=== PATIENT | female | born 1990 | race African-American/Black ===

== ENCOUNTER 2016-11-04 10:13 | Emergency (ER) | payer OTHER ==
[~2016-11-04] VITALS: Ht 162.6 cm; Wt 83.0 kg
[~2016-11-04 10:13] MED LIST: AMOXICILLIN500 MG ORAL; AUGMENTIN 875-1 EAC1 ORAL; AZITHROMYCIN250 MG ORAL; CEPHALEXIN500 MG ORAL; CIPROFLOXACIN500 M2 ORAL; CLINDAMYCIN HC300 MG ORAL; DIFLUCAN200 MG ORAL; FLUCONAZOLE100 MG ORAL; IBUPROFEN600 MG ORAL; METRONIDAZOLE500 MG ORAL; NITROFURANTOIN100 M2 ORAL; NKM; PENICILLIN V P500 MG PO; PHENAZOPYRIDIN200 MG ORAL
[2016-11-04 11:10] VITALS: BP 103/71
[2016-11-04] MEDS ORDERED: CLOTRIMAZOLE15 GM TOPIC (11:11)
[2016-11-04 11:28] VITALS: BP 103/71
--- NOTE | 2016-11-04 15:11 | Emergency Room Report ---
History of Present Illness General Chief Complaint: Skin Rash/Abscess Source: Patient Present Illness HPI 26-year-old female presents to ED for evaluation of rash. States she noticed a spot on her left hip today. itchy in nature. Denies any pain. Denies any fevers or chills. Denies any sick contacts or recent travel. No other aggravating or relieving factors. Denies any other associated symptoms Allergies: Coded Allergies: No Known Allergies (Unverified , 01/27/13) Patient History Past Medical History: none Past Surgical History: none Pertinent Family History: none Social History: Denies: alcohol use, drug use, smoking Last Menstrual Period: 10/21/16 Now: No Immunizations: UTD Reviewed Nursing Documentation: PMH: Agreed, PSxH: Agreed Nursing Documentation-PMH Past Medical History: No Stated History Review of Systems All Other Systems: negative except mentioned in HPI Physical Exam Vital Signs Date Time Temp Pulse Resp B/P Pulse Ox O2 Delivery O2 Flow Rate FiO2 11/04/16 10:55 98.2 72 16 103/71 100 Room Air Sp02 EP Interpretation: reviewed, normal General Appearance: no apparent distress, alert, GCS 15, non-toxic Head: normocephalic Eyes: bilateral eye PERRL, bilateral eye normal inspection ENT: normal ENT inspection Neck: normal inspection Respiratory: normal inspection Cardiovascular #1: normal inspection Gastrointestinal: normal inspection Rectal: deferred Genitourinary: no CVA tenderness Musculoskeletal: normal inspection Neurologic: alert, oriented x3, responsive, motor strength/tone normal, sensory intact, speech normal Psychiatric: normal inspection Skin: rash - one circular lesion on L hip. raised edges Lymphatic: normal inspection Medical Decision Making Diagnostic Impression: Primary Impression: Ringworm of body ER Course Hospital Course 26-year-old female presents to ED with rash to hip Differential diagnoses include: Cellulitis, dermatitis, insect bite, abscess Clinical course Patient placed on stretcher. After initial history, physical exam reveals a female in no acute distress. On exam there is a singular circular lesion noted to the L hip. Smooth in nature with raised edges. These appear consistent with ringworm. Reassurance given Diagnosis - ringworm of body stable and discharged to home with prescription for Lotrimin. Instructed to followup with PMD. Instructed return to ED if symptoms recur or worsen Last Vital Signs Date Time Temp Pulse Resp B/P Pulse Ox O2 Delivery O2 Flow Rate FiO2 11/04/16 11:28 98.2 76 16 103/71 100 Room Air Status: improved Disposition: HOME, SELF-CARE Condition: Stable Scripts Clotrimazole* (LOTRIMIN*) 15 Gm Cream..g. 1 APPLIC TOPIC TWICE A DAY, #15 GM Prov: DONNA CROCKETT M.D. 11/04/16 Referrals: [facility],REFERRING (PCP) Patient Instructions: Body Ringworm DONNA CROCKETT M.D. Nov 04, 2016 15:11
== END 2016-11-04 11:29 | disposition home or self-care (01) ==
LOC: EMR 11:16
DX: B35.4 Tinea corporis (principal)
CPT/HCPCS: 99283

== ENCOUNTER 2016-11-13 08:01 | Emergency (ER) | payer OTHER ==
[~2016-11-13] VITALS: Ht 162.6 cm; Wt 83.0 kg
[~2016-11-13 08:01] MED LIST changes: +CLOTRIMAZOLE15 GM TOPIC
[2016-11-13 08:35] LABS: APPEARANCE,URINE CLEAR; KETONES,URINE NEGATIVE (NEGATIVE); LEUKOCYTE ESTERASE ,URINE NEGATIVE (NEGATIVE); NITRITE,URINE NEGATIVE (NEGATIVE); PH,URINE 8 (4.5-8.0); PROTEIN,URINE NEGATIVE (NEGATIVE); UROBILINOGEN,URINE NORMAL MG/DL (0.0-1.0)
[2016-11-13 08:39] VITALS: BP 105/74
[2016-11-13 09:38] VITALS: BP 100/65
--- NOTE | 2016-11-13 10:04 | Emergency Room Report ---
History of Present Illness General Chief Complaint: Female Urogenital Problems Source: Patient Present Illness HPI 26YOF with c/o of "mass" under C/section scar and "uncomfortable" feeling when urinating for 2 days. States always feels like has to urinate, but no urine produced. C/o mass, unchanged in size since June. Per EMR, was seen here Jun 2016, thought possible cellulitis/asbcess. Given Rx Keflex, which she completed but states no improvement in size, pain. Denies dysuria, polyuria, discharge, flank pain, nausea/vomiting. Allergies: Coded Allergies: No Known Allergies (Unverified , 01/27/13) Patient History Past Medical History: none Past Surgical History: Pertinent Family History: none Social History: Denies: alcohol use, drug use, smoking Last Menstrual Period: 3-26 Now: No Immunizations: UTD Reviewed Nursing Documentation: PMH: Agreed, PSxH: Agreed Nursing Documentation-PMH Past Medical History: No Stated History Review of Systems All Other Systems: negative except mentioned in HPI Physical Exam Vital Signs Date Time Temp Pulse Resp B/P Pulse Ox O2 Delivery O2 Flow Rate FiO2 11/13/16 08:04 98.4 78 18 105/74 99 Room Air Sp02 EP Interpretation: reviewed, normal General Appearance: normal inspection, well appearing, no apparent distress, alert Head: atraumatic ENT: normal ENT inspection, hearing grossly normal, normal voice Neck: normal inspection, full range of motion, supple, no bony tend Respiratory: normal inspection, lungs clear, normal breath sounds, no respiratory distress, no retraction, no wheezing Cardiovascular #1: regular rate, rhythm, no edema Gastrointestinal: normal inspection, normal bowel sounds, non tender, soft, no guarding, no hernia Genitourinary: no CVA tenderness, other - Pelvic done with MARIN Ivan: there is 2cm area of induration under the C/section scar in midline. No overlying erythema or cellulitis. Area is hard, ttp. On pelvic exam there is no obvious weaknening of vaginal wall or bladder floor Musculoskeletal: normal inspection, back normal, normal range of motion, Chau' s Sign negative Neurologic: normal inspection, alert, oriented x3, responsive, insights manager III-XII nml as tested, speech normal Psychiatric: normal inspection, judgement/insight normal, mood/affect normal Skin: normal inspection, normal color, no rash Lymphatic: normal inspection Medical Decision Making Diagnostic Impression: Primary Impression: Pelvic pain Additional Impression: Urge and stress incontinence ER Course Not UA: No infection. Unlikely abscess under skin given 4 months unchanged in size, no improvement with Keflex Abx previously Advised [employer] followup to evaluate, possible post-surgical scar, seroma Also advised Kegel exercises, followup [employer] to eval for urge incontinence DC home Last Vital Signs Date Time Temp Pulse Resp B/P Pulse Ox O2 Delivery O2 Flow Rate FiO2 11/13/16 09:38 98.4 75 18 100/65 99 Room Air Status: improved Disposition: HOME, SELF-CARE Condition: Improved Patient Instructions: Adhesions, [id number], Kegel Exercises Additional Instructions: - Please follow up with your primary doctor/[employer] to evaluate the scar tissue under the scar and also for weakness in your bladder floor - Try the kegel exercises in attached information to strengthen your bladder floor muscles TERENCE LEROY M.D. Nov 13, 2016 10:04
== END 2016-11-13 09:39 | disposition home or self-care (01) ==
LOC: EMR 08:17
DX: R10.2 Pelvic and perineal pain (principal); N39.46 Mixed incontinence; L90.5 Scar conditions and fibrosis of skin
CPT/HCPCS: 81003; 81025; 99282

== ENCOUNTER 2016-11-27 10:05 | Emergency (ER) | payer OTHER ==
[~2016-11-27] VITALS: Ht 162.6 cm; Wt 83.0 kg
[2016-11-27 10:18] VITALS: BP 104/70
--- NOTE | 2016-11-27 10:35 | Emergency Room Report ---
History of Present Illness General Chief Complaint: Sore Throat Source: Patient Present Illness HPI The patient presents with a sore throat that began yesterday. She states the pain is 9/10. She denies any cough. She does not sure she's had a fever. She' s having difficulty swallowing. No NVD, dysuria, chest pain. No rashes. She doesn't think she's . Allergies: Coded Allergies: No Known Allergies (Unverified , 01/27/13) Patient History Past Medical History: see triage record Social History: Denies: smoking Social History Narrative with sig other Now: No Nursing Documentation-PMH Past Medical History: No Stated History Review of Systems All Other Systems: negative except mentioned in HPI Physical Exam Vital Signs Date Time Temp Pulse Resp B/P Pulse Ox O2 Delivery O2 Flow Rate FiO2 11/27/16 10:09 98.2 81 20 104/70 96 Room Air Sp02 EP Interpretation: reviewed, normal General Appearance: well appearing, no apparent distress Head: normocephalic, atraumatic Eyes: bilateral eye normal inspection ENT: normal voice, moist mucus membranes, pharyngeal erythema, tonsillar exudate Neck: full range of motion, supple Respiratory: no respiratory distress, speaking full sentences Cardiovascular #2: 2+ radial (L) Gastrointestinal: normal inspection Musculoskeletal: gait/station normal, normal range of motion Neurologic: alert, normal gait, grossly normal Psychiatric: mood/affect normal Skin: no rash Medical Decision Making Diagnostic Impression: Primary Impression: Pharyngitis Qualified Codes: J02.9 - Acute pharyngitis, unspecified ER Course Patient with throat pain. Ddx: strep, viral, [place] amongst others. Exam c/w strep. Will treat with decadron, lido, augmentin. Patient stable for outpatient observation and treatment. Last Vital Signs Date Time Temp Pulse Resp B/P Pulse Ox O2 Delivery O2 Flow Rate FiO2 11/27/16 11:03 98.2 20 104/70 96 Room Air 11/27/16 10:09 81 Status: improved Disposition: HOME, SELF-CARE Condition: Improved Scripts Amoxicillin/Potassium Clav 500-125 Tablet* (AUGMENTIN 500-125 TABLET*) 1 Each Tablet 1 TAB ORAL THREE TIMES A DAY, #21 TAB Prov: Sai Rojo M.D. 11/27/16 Tramadol Hcl* (ULTRAM*) 50 Mg Tablet 50 MG ORAL Q6H Y for For Pain, #10 TAB 0 Refills Prov: Sai Rojo M.D. 11/27/16 Ibuprofen* (MOTRIN*) 600 Mg Tablet 600 MG ORAL Q6H Y for For Pain, #16 TAB Prov: Sai Rojo M.D. 11/27/16 Referrals: [facility],REFERRING (PCP) Sai Rojo M.D. November 27, 2016 10:35
[2016-11-27] MEDS ORDERED: IBUPROFEN600 MG ORAL (10:43)
[2016-11-27] MEDS ORDERED: TRAMADOL HCL50 MG ORAL (10:43)
[2016-11-27] MEDS ORDERED: AUGMENTIN 500-1 EACH ORAL (10:43)
[2016-11-27] MEDS ORDERED: Lidocaine 2% Visc 15ml soln ORAL ONE (10:45)
[2016-11-27 11:03] VITALS: BP 104/70
== END 2016-11-27 11:05 | disposition home or self-care (01) ==
LOC: EMR 10:24
DX: J02.9 Acute pharyngitis, unspecified (principal)
CPT/HCPCS: 99284; J8540

== ENCOUNTER 2017-01-14 19:49 | Emergency (ER) | payer OTHER ==
[~2017-01-14] VITALS: Ht 175.3 cm; Wt 85.7 kg
[~2017-01-14 19:49] MED LIST changes: +AUGMENTIN 500-1 EACH ORAL; +TRAMADOL HCL50 MG ORAL
[2017-01-14 20:08] VITALS: BP 108/74
[2017-01-14] MEDS ORDERED: IBUPROFEN600 MG ORAL (20:50)
[2017-01-14] MEDS ORDERED: BENADRYL25 MG ORAL (20:50)
--- NOTE | 2017-01-14 21:41 | Emergency Room Report ---
History of Present Illness General Chief Complaint: General Complaint Source: Patient Present Illness HPI The patient is a 26-year-old female presenting for bee sting. The patient states that she stepped on a bee one hour prior to arrival and pulled a stinger out. She is now experiencing a 9/10 sharp pain to the right fourth toe. Pain does not radiate. Worse with walking and touch. She denies other symptoms including shortness of breath, dizziness, nausea, vomiting, numbness or tingling Allergies: Coded Allergies: No Known Allergies (Unverified , 01/27/13) Patient History Past Medical History: see triage record Pertinent Family History: none Last Menstrual Period: last month Reviewed Nursing Documentation: PMH: Agreed, PSxH: Agreed Nursing Documentation-PMH Past Medical History: No Stated History Review of Systems All Other Systems: negative except mentioned in HPI Physical Exam Vital Signs Date Time Temp Pulse Resp B/P Pulse Ox O2 Delivery O2 Flow Rate FiO2 01/14/17 19:58 98.4 83 16 108/74 99 Room Air Sp02 EP Interpretation: reviewed, normal General Appearance: no apparent distress, alert, GCS 15, non-toxic Head: normocephalic, atraumatic Eyes: bilateral eye PERRL, bilateral eye normal inspection ENT: hearing grossly normal, normal pharynx, no angioedema, normal voice Neck: full range of motion, supple/symm/no masses Respiratory: chest non-tender, lungs clear, normal breath sounds, no wheezing, speaking full sentences Musculoskeletal: back normal, gait/station normal, normal range of motion, tender - TTP over the distal R 4th toe Neurologic: alert, oriented x3, responsive, motor strength/tone normal, sensory intact, speech normal Psychiatric: judgement/insight normal, memory normal, mood/affect normal, no suicidal/homicidal ideation Skin: normal color, no rash, warm/dry, well hydrated Medical Decision Making PA Attestation Dr. Leon is my supervising physician. Patient management was discussed with my supervising physician Diagnostic Impression: Primary Impression: Bee sting Qualified Codes: T63.441A - Toxic effect of venom of bees, accidental ( unintentional), initial encounter ER Course The patient is a 26-year-old female presenting for bee sting. Ddx considered include but not limited to insect bite, contact dermatitis, infection, allergic reaction, among others PE: vitals WNL. NAD There is only tenderness to palpation of the toe. No edema or erythema. The patient is given Motrin and Benadryl in the ER and will be discharged with the same medications. ER precautions given Last Vital Signs Date Time Temp Pulse Resp B/P Pulse Ox O2 Delivery O2 Flow Rate FiO2 01/14/17 20:54 98.4 16 108/74 99 Room Air 01/14/17 19:58 83 Status: improved Disposition: HOME, SELF-CARE Condition: Improved Scripts Diphenhydramine Hcl* (BENADRYL*) 25 Mg Capsule 25 MG ORAL Q6H Y for Itching, #10 CAP Prov: SASHA DANIEL 01/14/17 Ibuprofen* (MOTRIN*) 600 Mg Tablet 600 MG ORAL Q8H Y for For Pain, #30 TAB 0 Refills Prov: SASHA DANIEL 01/14/17 Referrals: [facility],REFERRING (PCP) Patient Instructions: Bee, Wasp, or Hornet Sting Additional Instructions: I discussed my findings with the patient. All questions and concerns have been answered. Treatment and medication compliance have been addressed. I advised the patient that they need to follow up with PMD in 3-5 days. Return to ED if symptoms worsen, new symptoms arise, or if needed for any reason. Patient verbalized understanding of discharge instructions. SASHA DANIEL Jan 14, 2017 21:41
== END 2017-01-14 20:54 | disposition home or self-care (01) ==
LOC: EMR 20:44
DX: T63.441A Toxic effect of venom of bees, accidental (unintentional), initial encounter (principal); W57.XXXA Bitten or stung by nonvenomous insect and other nonvenomous arthropods, initial encounter; Y92.9 Unspecified place or not applicable
CPT/HCPCS: 99284

== ENCOUNTER 2017-04-20 12:18 | Emergency (ER) | payer MEDICAID ==
[~2017-04-20] VITALS: Ht 160 cm; Wt 92.5 kg
[~2017-04-20 12:18] MED LIST changes: +BENADRYL25 MG ORAL; +DICLEGIS DR 101 EACH PO; +KEFLEX500 MG ORAL
[2017-04-20 13:44] LABS: BASOPHILS % (AUTO) 0.3 % (0.0-2.0); EOSINOPHILS % (AUTO) 0.3 % (0.0-3.0); LYMPHOCYTES % (AUTO) 16.8 % (20.0-45.0); MEAN CORPUSCULAR HEMOGLOBIN 29.1 PG (27.0-31.0); MEAN CORPUSCULAR HGB CONC 32.7 G/DL (32.0-36.0); MEAN CORPUSCULAR VOLUME 89 FL (80-99); MEAN PLATELET VOLUME 7.4 FL (6.5-10.1); MONOCYTES % (AUTO) 3.7 % (1.0-10.0); NEUTROPHILS % (AUTO) 78.9 % (45.0-75.0); PLATELET COUNT 206 K/UL (150-450); RED BLOOD COUNT 4.11 M/UL (4.20-5.40); RED CELL DISTRIBUTION WIDTH 13.2 % (11.6-14.8); WHITE BLOOD COUNT 15.4 K/UL (4.8-10.8)
[2017-04-20 13:56] LABS: INR 0.9 (0.9-1.1); PROTHROMBIN TIME 9.5 SEC (9.30-11.50)
[2017-04-20 14:12] VITALS: BP 112/85
--- NOTE | 2017-04-20 14:15 | Emergency Room Report ---
History of Present Illness General Chief Complaint: Vomiting Source: Patient Present Illness HPI This is a 26-year-old female who presented after increased abdominal pain and vomiting. The patient is approximately 5 months . Patient had not been having any fever. She denies any localized pain. She had been preceded diagnosed with hyperemesis. The patient stated that she did not smoke any marijuana. She denies any flank pain . She denied urinary symptoms.She reports baby moving normally. She denies vaginal bleeding or leakage of fluid. Allergies: Coded Allergies: No Known Allergies (Unverified , 01/27/13) Patient History Past Medical History: see triage record Last Menstrual Period: 5 months ago Now: Yes : 1 Para: 1 Reviewed Nursing Documentation: PMH: Agreed, PSxH: Agreed Nursing Documentation-PMH Past Medical History: No Stated History Review of Systems All Other Systems: negative except mentioned in HPI Physical Exam Vital Signs Date Time Temp Pulse Resp B/P (MAP) Pulse Ox O2 Delivery O2 Flow Rate FiO2 04/20/17 12:23 98.1 86 16 110/75 97 Room Air Sp02 EP Interpretation: reviewed, normal General Appearance: normal inspection, well appearing, no apparent distress, alert, GCS 15 Head: atraumatic ENT: normal ENT inspection, hearing grossly normal, normal voice Neck: normal inspection, full range of motion, supple, no bony tend Respiratory: normal inspection, lungs clear, normal breath sounds, no respiratory distress, no retraction, no wheezing Cardiovascular #1: regular rate, rhythm, no edema Gastrointestinal: normal inspection, normal bowel sounds, non tender, soft, no guarding, no hernia Genitourinary: no CVA tenderness Musculoskeletal: normal inspection, back normal, normal range of motion Neurologic: normal inspection, alert, oriented x3, responsive, underground miner III-XII nml as tested, speech normal Psychiatric: normal inspection, judgement/insight normal, mood/affect normal Skin: normal inspection, normal color, no rash Medical Decision Making Diagnostic Impression: Primary Impression: Intrauterine ER Course Patient presented for abdominal pain. Differential diagnoses included ischemic bowel, appendicitis, perforated viscus, abdominal aortic aneurysm, inferior myocardial infarction, viral gastroenteritis Because of complexity of patient's case laboratory testing and imaging studies were ordered. The patient was given IV fluids as well as IV antiemetics. Bedside ultrasound showed an intrauterine with heart rate approximately 150. There appears to be adequate amniotic fluid.Patient was started on IV fluids as well as IV antiemetics laboratory testing was notable for elevated white blood count 15,000 which is likely due to patient's . Labs Test 04/20/17 12:59 04/20/17 13:05 04/20/17 14:10 Urine Color Pale yellow Urine Appearance Clear Urine pH 6 (4.5-8.0) Urine Specific [place] 1.010 (1.005-1.035) Urine Protein Negative (NEGATIVE) Urine Glucose (UA) Negative (NEGATIVE) Urine Ketones Negative (NEGATIVE) Urine Occult Blood Negative (NEGATIVE) Urine Nitrite Negative (NEGATIVE) Urine Bilirubin Negative (NEGATIVE) Urine Urobilinogen Normal MG/DL (0.0-1.0) Urine Leukocyte Esterase Negative (NEGATIVE) White Blood Count 15.4 K/UL (4.8-10.8) Red Blood Count 4.11 M/UL (4.20-5.40) Hemoglobin 12.0 G/DL (12.0-16.0) Hematocrit 36.6 % (37.0-47.0) Mean Corpuscular Volume 89 FL (80-99) Mean Corpuscular Hemoglobin 29.1 PG (27.0-31.0) Mean Corpuscular Hemoglobin Concent 32.7 G/DL (32.0-36.0) Red Cell Distribution Width 13.2 % (11.6-14.8) Platelet Count 206 K/UL (150-450) Mean Platelet Volume 7.4 FL (6.5-10.1) Neutrophils (%) (Auto) 78.9 % (45.0-75.0) Lymphocytes (%) (Auto) 16.8 % (20.0-45.0) Monocytes (%) (Auto) 3.7 % (1.0-10.0) Eosinophils (%) (Auto) 0.3 % (0.0-3.0) Basophils (%) (Auto) 0.3 % (0.0-2.0) Prothrombin Time 9.5 SEC (9.30-11.50) Prothromb Time International Ratio 0.9 (0.9-1.1) Activated Partial Thromboplast Time 27 SEC (23-33) Sodium Level 137 mEQ/L (135-145) Potassium Level 3.5 mEQ/L (3.4-4.9) Chloride Level 103 mEQ/L (98-107) Carbon Dioxide Level 21 mEQ/L (20-30) Anion Gap 13 (5-15) Blood Urea Nitrogen 6 mg/dL (7-23) Creatinine 0.7 mg/dL (0.5-0.9) Estimat Glomerular Filtration Rate > 60 mL/min (>60) Glucose Level 98 mg/dL (74-106) Calcium Level 8.5 mg/dL (8.6-10.2) Total Bilirubin 0.2 mg/dL (0.0-1.2) Aspartate Amino Transf (AST/SGOT) 15 U/L (5-40) Alanine Aminotransferase (ALT/SGPT) 15 U/L (3-33) Alkaline Phosphatase 42 U/L (35-104) Total Protein 5.9 g/dL (6.6-8.7) Albumin 3.2 g/dL (3.5-5.2) Globulin 2.7 g/dL Albumin/Globulin Ratio 1.1 (1.0-2.7) Urine Opiates Screen Negative (NEGATIVE) Urine Barbiturates Screen Negative (NEGATIVE) Phencyclidine (PCP) Screen Negative (NEGATIVE) Urine Amphetamines Screen Negative (NEGATIVE) Urine Benzodiazepines Screen Negative (NEGATIVE) Urine Cocaine Screen Negative (NEGATIVE) Urine Marijuana (THC) Screen Positive (NEGATIVE) Last Vital Signs Date Time Temp Pulse Resp B/P (MAP) Pulse Ox O2 Delivery O2 Flow Rate FiO2 04/20/17 12:23 98.1 86 16 110/75 97 Room Air Status: improved Disposition: HOME, SELF-CARE Condition: Stable Scripts Ondansetron (Zofran) 4 Mg Tablet 4 MG ORAL Q6H Y for Nausea & Vomiting, #30 TAB 0 Refills Prov: Lucian Freire 04/20/17 Doxylamine/Pyridoxine Hcl (ALESSIO PIERCE 10-10 MG TABLET) 1 Each Tablet. 1 EACH PO QHS, #14 TAB Prov: Lucian Freire 04/20/17 Referrals: [facility],REFERR[facility] (PCP) Lucian Freire Apr 20, 2017 14:15
[2017-04-20 14:19] LABS: APPEARANCE,URINE CLEAR; KETONES,URINE NEGATIVE (NEGATIVE); LEUKOCYTE ESTERASE ,URINE NEGATIVE (NEGATIVE); NITRITE,URINE NEGATIVE (NEGATIVE); PH,URINE 6 (4.5-8.0); PROTEIN,URINE NEGATIVE (NEGATIVE); UROBILINOGEN,URINE NORMAL MG/DL (0.0-1.0)
[2017-04-20 14:21] LABS: ALANINE AMINOTRANSFERASE 15 U/L (3-33); ALBUMIN/GLOBULIN RATIO 1.1 (1.0-2.7); ANION GAP 13 (5-15); ASPARTATE AMINO TRANSFERASE 15 U/L (5-40); CALCIUM 8.5 mg/dL (8.6-10.2); CARBON DIOXIDE 21 mEQ/L (20-30); CHLORIDE 103 mEQ/L (98-107); CREATININE 0.7 mg/dL (0.5-0.9); GLOMERULAR FILTRATION RATE > 60 mL/min (>60); HEMOLYSIS 3; POTASSIUM 3.5 mEQ/L (3.4-4.9); SODIUM 137 mEQ/L (135-145); TOTAL PROTEIN 5.9 g/dL (6.6-8.7)
[2017-04-20] MEDS ORDERED: ZOFRAN4 MG ORAL (14:41)
[2017-04-20] MEDS ORDERED: DICLEGIS DR 101 EACH PO (14:41)
[2017-04-20 15:08] VITALS: BP 112/85
== END 2017-04-20 15:21 | disposition home or self-care (01) ==
LOC: EMR 12:46
DX: O21.0 Mild hyperemesis gravidarum (principal)
CPT/HCPCS: 36415; 80053; 80300; 81003; 85025; 85610; 85730; 96361; 96374; 99284; J2405

== ENCOUNTER 2017-07-05 12:23 | Emergency (ER) | payer MEDICAID ==
[~2017-07-05] VITALS: Ht 162.6 cm; Wt 93.9 kg
[~2017-07-05 12:23] MED LIST changes: +ZOFRAN4 MG ORAL
[2017-07-05] MEDS ORDERED: BACITRACIN15 GM TOPIC (12:51)
[2017-07-05] MEDS ORDERED: AQUAPHOR HEALIN50 GM TP (12:51)
[2017-07-05] MEDS ORDERED: Bacitracin Oint UD TOPIC ONE (13:00)
[2017-07-05 13:13] VITALS: BP 110/74
[2017-07-05 13:16] VITALS: BP 110/74
--- NOTE | 2017-07-05 22:08 | Emergency Room Report ---
History of Present Illness General Chief Complaint: Skin Rash/Abscess Source: Patient Present Illness HPI The patient is a 27-year-old female proximally 6 months gestation presenting for bilateral foot itching and dryness. This has been going on for approximately one month the patient has not tried any treatment yet. Pain is a 3/10 burning sensation does not radiate. She denies any other symptoms including fever, chills, Pain or swelling Allergies: Coded Allergies: No Known Allergies (Unverified , 01/27/13) Patient History Past Medical History: see triage record Pertinent Family History: none Last Menstrual Period: 12/2016 Now: Yes - 7 months : 2 Para: 1 Reviewed Nursing Documentation: PMH: Agreed, PSxH: Agreed Nursing Documentation-PMH Past Medical History: No Stated History Review of Systems All Other Systems: negative except mentioned in HPI Physical Exam Vital Signs Date Time Temp Pulse Resp B/P (MAP) Pulse Ox O2 Delivery O2 Flow Rate FiO2 07/05/17 12:28 97.3 92 18 110/74 98 Room Air Sp02 EP Interpretation: reviewed, normal General Appearance: no apparent distress, alert, GCS 15, non-toxic Head: normocephalic, atraumatic Eyes: bilateral eye normal inspection, bilateral eye PERRL ENT: hearing grossly normal, normal pharynx, no angioedema, normal voice Musculoskeletal: back normal, gait/station normal, normal range of motion Psychiatric: judgement/insight normal, memory normal, mood/affect normal, no suicidal/homicidal ideation Skin: rash - Bilateral calcaneus thickening of skin with some cracking. Medical Decision Making PA Attestation Dr. Keith is my supervising physician. Patient management was discussed with my supervising physician Diagnostic Impression: Primary Impression: Dry skin ER Course The patient is a 27-year-old female proximally 6 months gestation presenting for bilateral foot itching and dryness. Ddx considered include but not limited to dry skin, contact dermatitis, eczema, cellulitis PE: NAD. Bilateral calcaneus thickening of skin with some cracking.TTP. No erythema. no bleeding. No calf swelling or TTP Bacitracin is applied with dressing. She'll be discharged home with a prescription for Aquaphor and bacitracin. ER precautions are given Last Vital Signs Date Time Temp Pulse Resp B/P (MAP) Pulse Ox O2 Delivery O2 Flow Rate FiO2 07/05/17 13:16 97.3 72 18 110/74 98 Room Air Status: improved Disposition: HOME, SELF-CARE Condition: Improved Scripts Bacitracin (Bacitracin) 28.4 Gm Oint...g. 1 APPLIC TOPIC THREE TIMES A DAY, #28 GM Prov: SASHA DANIEL 07/05/17 Mineral Oil/Hydrophil Petrolat (AQUAPHOR HEALING OINTMENT) 50 Gm Oint...g. 1 APPLIC TP TID, #50 GM Prov: SASHA DANIEL 07/05/17 Referrals: [facility] (PCP) Patient Instructions: Rash Additional Instructions: I discussed my findings with the patient. All questions and concerns have been answered. Treatment and medication compliance have been addressed. I advised the patient that they need to follow up with PMD in 3-5 days. Return to ED if symptoms worsen, new symptoms arise, or if needed for any reason. Patient verbalized understanding of discharge instructions. SASHA DANIEL Jul 05, 2017 22:08
== END 2017-07-05 13:20 | disposition home or self-care (01) ==
LOC: EMR 13:15
DX: O26.892 Other specified pregnancy related conditions, second trimester (principal); L98.8 Other specified disorders of the skin and subcutaneous tissue; L29.8 Other pruritus
CPT/HCPCS: 99284